=== PATIENT | female | born 1980 | race Caucasian/White ===

== ENCOUNTER 2021-10-02 12:37 | Inpatient (IN) ==
[2021-10-02 13:49] LABS: Hematocrit (blood only) 44.6 % (37-47); Hemoglobin 15.5 g/dL (12.0-16.0); Mean Corpuscular Hemoglobin 32.2 pg (25-34); Mean Corpuscular Hgb Conc 34.8 g/dL (32-36); Mean Corpuscular Volume 92.7 fL (80-100); Mean Platelet Volume 11.1 fL (7.4-10.4); Platelet Count 285 K/uL (130-400); RDW Coefficient of Variation 12.3 % (11.5-14.5); RDW Standard Deviation 41.6 fL (36.4-46.3); Red Blood Count 4.81 M/uL (4.2-5.4); White Blood Count 10.23 K/uL (4.8-10.8)
--- NOTE | 2021-10-02 13:53 | CT Scan Report ---
CT head/brain wo con CLINICAL HISTORY: Stroke Alert . Numbness in the lips COMPARISON STUDY: No previous studies for comparison. CT DOSE: 614.27 mGy.cm TECHNIQUE: Standard CT of the Brain was performed without IV contrast. A dose lowering technique was utilized adhering to the principles of ALARA. FINDINGS: Extraaxial space: There is no evidence for subdural hematoma. There are no extra-axial fluid collecti ons. Ventricles and cisterns: The ventricles are normal in size and configuration. There is no evidence fo r midline shift or mass effect. Parenchyma: There is no subarachnoid or intraparenchymal hemorrhage. There is no evidence for an acut e infarct or cerebral edema. There is homogeneous attenuation of the brain parenchyma. There are no g ross mass lesions. Osseous structures: There is no evidence for an acute fracture. The visualized paranasal sinuses are clear. The mastoid air cells are clear bilaterally. Soft tissues: There is no evidence for focal soft tissue swelling. IMPRESSION: 1. No acute intracerebral pathology. ACT 112: Negative or not required by law. Electronically signed by: Moisés Song M.D. 10/02/2021 1:52 PM
[2021-10-02 13:58] LABS: Partial Thromboplastin Time 27.7 Seconds (21.0-31.0); Prothrombin Time 10.9 Seconds (9.0-12.0)
[2021-10-02 14:22] LABS: Albumin Globulin Ratio 1.6 (0.9-2); Albumin Level 4.6 gm/dl (3.4-5.0); BUN Creatinine Ratio 15.1 (10-20); Bilirubin,Total 0.9 mg/dl (0.2-1.0); Calcium 9.8 mg/dl (8.5-10.1); Creatinine Clr Calc Pharmacy 84.4 ml/min; Est GFR (African American) 96.6 ml/min; Est GFR (Non-African American) 83.3 ml/min; Globulin 2.9 gm/dl (2.5-4.0); Potassium 3.9 mmol/L (3.5-5.1); Total Protein 7.5 gm/dl (6.0-8.3)
--- NOTE | 2021-10-02 14:33 | XRay Report ---
XR chest 2V PA/lateral HISTORY: Left arm numbness. Stroke symptoms. COMPARISON: None. FINDINGS: The lungs are clear. Cardiac silhouette is normal in size. No pleural effusions. No pneumot horax. IMPRESSION: No acute process. ACT 112: Negative or not required by law. Electronically signed by: Star Collazo M.D. 10/02/2021 2:32 PM
[2021-10-02] MEDS ORDERED: SODIUM CHLORIDE 0.9% 1000ML 1,000 ML IV ONE (16:02)
[2021-10-02] MEDS ORDERED: MAGNESIUM SULFATE / D5W 1 GM/100 ML BAG IV STA (16:02)
--- NOTE | 2021-10-02 16:14 | Emergency Department Note ---
History of Present Illness General Chief complaint: Neuro Symptoms/Deficit Stated complaint: LOSS OF FEELING IN HAND, NUMBNESS IN FACE Time Seen by Provider: 10/02/21 15:21 Source: patient History of Present Illness Provider complaint: Numbness to the left hand Onset (ago): hour(s) Location: upper extremity and left Radiation: non-radiation Pain Consistency: + constant Maximum Pain Intensity: 3 Quality: + other (Like she has Novocain injected to her hand.) Relieved By: + none Associated symptoms: + headaches; no chest pain, no cough, no fever/chills, no nausea/vomiting, no shortness of breath or no weakness This is a 40-year-old female who presents with left hand numbness starting at approximately 7 AM this morning when she woke up. She states that she feels lik e there is Novocain injected into her hand. She denies any weakness to the hand. She does state that she has had neck problems in the past but denies having any neck pain at this time. She does have a little pain to her left shoulder. She has no numbness to her left arm proximal to the wrist. She denies any difficulty with her speech, swallowing or walking. She does deny any acute vision changes other than saying spots in front of her eyes that look like rectangles. She gets these sometimes when she gets a headache. She did start having a headache yesterday which is on the right side behind her eye rating to the back of her head. It did go away but then is starting to come back right now. She has a history of similar headaches but denies any diagnosis of migraines. Her mother is diagnosed with migraine headaches. She did have COVID 2 weeks ago but has no symptoms currently. She denies any fever, cough, chest pain or shortness of breath. She has had no abdominal pain, vomiting diarrhea or urinary symptoms. She does have an implantable Mirena IUD. Home Medications Medication Instructions Recorded Confirmed Type levonorgestrel 20 mcg/24 hours (7 20 mcg INTRAUTERINE CONT 10/02/21 10/02/21 History yrs) 52 mg intrauterine device (Mirena) Allergies Allergy/AdvReac Type Severity Reaction Status Date / Time erythromycin base Allergy Nausea Verified 10/02/21 16:31 Past Med/Surg History Medical History (Updated 10/02/21 @ 19:34 by Gilbert Phan MD) Anxiety Depression Social History Preferred Language: Palestinian Feels Safe at Home: Yes Review of Systems See HPI for pertinent positives & negatives. and A total of 10 systems reviewed and were otherwise negative Physical Exam Vital Signs Vital Signs - 24 hr 10/02/21 12:55 10/02/21 16:00 10/02/21 16:15 Temperature 36.4 C L Temperature Source Temporal Artery Scan Pulse Rate 84 72 Pulse Rate [Apical] 71 Pulse Rhythm Regular Pulse Rhythm [Apical] Regular Pulse Strength Normal Respiratory Rate 20 17 20 Respiratory Effort / Characteristics Non-Labored Spontaneous Non-Labored Respiratory Depth Normal Normal Respiratory Pattern Regular Blood Pressure 163/97 H Blood Pressure [Right Arm] 127/88 Blood Pressure Mean 119 Blood Pressure Mean [Right Arm] 101 Blood Pressure Position Sitting Pulse Oximetry 98 98 95 Oxygen Delivery Method Room Air Room Air Room Air Sepsis Recent Fever Within 48 Hours No Sepsis New/Unexplained Change in Mental Status No Sepsis Action Taken by Nursing No Action Required Constitutional: Vital signs reviewed. Eyes: Pupils are equal round reactive to light. Conjunctiva are noninjected. ENT: Pharynx is clear without erythema or exudate. Mucous membranes are moist. Neck supple without meningeal signs. Negative Spurling sign. No midline tenderness to the cervical spine. Respiratory: Clear to auscultation bilaterally. Breath sounds are equal bilaterally. Cardiovascular: Regular rate and rhythm. No rubs or gallops. GI: Soft, nondistended and nontender. Bowel sounds are present. Musculoskeletal: No peripheral edema. No lower extremity tenderness. Integumentary: No cyanosis. or jaundice. Neurologic: The patient is awake and alert. Cranial nerves II-XII are intact. Motor is 5 out of 5 all extremities. Sensation is intact to light touch all extremities with dysesthesia to the left hand only. Normal speech. No pronator drift. No limb ataxia. Psychiatric: Normal affect. Not anxious appearing. Course Administered Medications Discontinued Medications Gadobutrol (Gadobutrol 65ml Vial) 7.8 ml IV ONCE ONE Stop: 10/02/21 18:12 Last Admin: 10/02/21 18:11 Dose: 7.8 ml Documented by: [id number] Magnesium Sulfate/Dextrose (Magnesium Sulfate / D5w) 1 gm in 100 mls @ 100 mls/hr IV NOW STA Stop: 10/02/21 17:01 Last Admin: 10/02/21 16:52 Dose: 100 mls/hr Documented by: [id number] Sodium Chloride (Nss 1000ml) 1,000 mls @ 999 mls/hr IV .Q1H1M ONE Stop: 10/02/21 17:02 Last Admin: 10/02/21 16:52 Dose: 999 mls/hr Documented by: [id number] Ioversol (Optiray 320 125ml) 119 ml IV ONCE ONE Stop: 10/02/21 18:38 Last Admin: 10/02/21 18:38 Dose: 119 ml Documented by: [id number] Medical Decision Making Differential Diagnosis Complex migraine, tension headache, paresthesias, TIA, CVA, cervical radiculopathy Medical Records Attestation: I reviewed the patient's medical records. I did perform a limited focused review of portions of the patient's old chart on the electronic medical record. The patient has had no recent pertinent visits to this hospital. Home Medications Current Medication List: was personally reviewed by me Laboratory Data Attestation: I reviewed the patient's lab results. Result diagrams: 10/02/21 13:35 10/02/21 13:35 Lab Results 10/02/21 10/02/21 10/02/21 Range/Units 13:35 13:35 13:35 WBC 10.23 (4.8-10.8) K/uL RBC 4.81 (4.2-5.4) M/uL Hgb 15.5 (12.0-16.0) g/dL Hct 44.6 (37-47) % MCV 92.7 (80-100) fL MCH 32.2 (25-34) pg MCHC 34.8 (32-36) g/dL RDW Std Deviation 41.6 (36.4-46.3) fL RDW Coeff of Cecilia 12.3 (11.5-14.5) % Plt Count 285 (130-400) K/uL MPV 11.1 H (7.4-10.4) fL PT 10.9 (9.0-12.0) Seconds INR 1.0 (0.9-1.1) APTT 27.7 (21.0-31.0) Seconds PTT Ratio 1.0 Sodium 137 (136-145) mmol/L Potassium 3.9 (3.5-5.1) mmol/L Chloride 106 (98-107) mmol/L Carbon Dioxide 26 (21-32) mmol/L Anion Gap 5 (3-11) BUN 13 (6-23) mg/dl Creatinine 0.86 (0.6-1.2) mg/dl Est Cr Clr Drug Dosing 84.4 ml/min Est GFR ( Amer) 96.6 ml/min Est GFR (Non-Af Amer) 83.3 ml/min BUN/Creatinine Ratio 15.1 (10-20) Glucose 96 (70-99(Fasting)) mg/dl POC Glucose (70-99) mg/dl Calcium 9.8 (8.5-10.1) mg/dl Magnesium 2.0 (1.7-2.4) mg/dl Total Bilirubin 0.9 (0.2-1.0) mg/dl AST 15 (13-39) U/L ALT 13 (7-52) U/L Alkaline Phosphatase 66 (34-104) U/L Total Protein 7.5 (6.0-8.3) gm/dl Albumin 4.6 (3.4-5.0) gm/dl Globulin 2.9 (2.5-4.0) gm/dl Albumin/Globulin Ratio 1.6 (0.9-2) / Range/Units 16:17 WBC (4.8-10.8) K/uL RBC (4.2-5.4) M/uL Hgb (12.0-16.0) g/dL Hct (37-47) % MCV (80-100) fL MCH (25-34) pg MCHC (32-36) g/dL RDW Std Deviation (36.4-46.3) fL RDW Coeff of Cecilia (11.5-14.5) % Plt Count (130-400) K/uL MPV (7.4-10.4) fL PT (9.0-12.0) Seconds INR (0.9-1.1) APTT (21.0-31.0) Seconds PTT Ratio Sodium (136-145) mmol/L Potassium (3.5-5.1) mmol/L Chloride (98-107) mmol/L Carbon Dioxide (21-32) mmol/L Anion Gap (3-11) BUN (6-23) mg/dl Creatinine (0.6-1.2) mg/dl Est Cr Clr Drug Dosing ml/min Est GFR ( Amer) ml/min Est GFR (Non-Af Amer) ml/min BUN/Creatinine Ratio (10-20) Glucose (70-99(Fasting)) mg/dl POC Glucose 96 (70-99) mg/dl Calcium (8.5-10.1) mg/dl Magnesium (1.7-2.4) mg/dl Total Bilirubin (0.2-1.0) mg/dl AST (13-39) U/L ALT (7-52) U/L Alkaline Phosphatase (34-104) U/L Total Protein (6.0-8.3) gm/dl Albumin (3.4-5.0) gm/dl Globulin (2.5-4.0) gm/dl Albumin/Globulin Ratio (0.9-2) Imaging Data Radiologist's Impression: Chest X-Ray 10/02/21 13:00 XR chest 2V PA/lateral HISTORY: Left arm numbness. Stroke symptoms. COMPARISON: None. FINDINGS: The lungs are clear. Cardiac silhouette is normal in size. No pleural effusions. No pneumothorax. IMPRESSION: No acute process. ACT 112: Negative or not required by law. Electronically signed by: Star Collazo M.D. 10/02/2021 2:[address] 10/02/21 13:00 CT head/brain wo con CLINICAL HISTORY: Stroke Alert . Numbness in the lips COMPARISON STUDY: No previous studies for comparison. CT DOSE: 614.27 mGy.cm TECHNIQUE: Standard CT of the Brain was performed without IV contrast. A dose lowering technique was utilized adhering to the principles of ALARA. FINDINGS: Extraaxial space: There is no evidence for subdural hematoma. There are no extra-axial fluid collections. Ventricles and cisterns: The ventricles are normal in size and configuration. There is no evidence for midline shift or mass effect. Parenchyma: There is no subarachnoid or intraparenchymal hemorrhage. There is no evidence for an acute infarct or cerebral edema. There is homogeneous attenuation of the brain parenchyma. There are no gross mass lesions. Osseous structures: There is no evidence for an acute fracture. The visualized paranasal sinuses are clear. The mastoid air cells are clear bilaterally. Soft tissues: There is no evidence for focal soft tissue swelling. IMPRESSION: 1. No acute intracerebral pathology. ACT 112: Negative or not required by law. Electronically signed by: Moisés Song M.D. 10/02/2021 1:52 PM Brain MRI 10/02/21 15:52 MR brain wo/w con CLINICAL HISTORY: stroke like symptoms TECHNIQUE: Multiplanar and multisequence MR images of the brain were obtained prior to and following administration of gadolinium contrast. Comparison: None available at the time of this dictation. FINDINGS: Restricted diffusion is seen in the posterior MCA territory. Associated edema is seen without significant mass effect or midline shift. The ventricular system is normal in appearance. There is no evidence of acute intraparenchymal hemorrhage. No extra axial fluid collections are seen. The corpus callosum, pituitary gland, and cerebellar tonsils appear grossly unremarkable. Flow voids of the major intracranial arterial vessels are identified. The imaged portions of the paranasal sinuses, mastoid air cells, and orbits are unremarkable. IMPRESSION: Acute infarct is in the right posterior MCA territory with associated edema. No hemorrhagic transformation is seen. ACT 112: Negative or not required by law. Electronically signed by: Nacho Gonzalez M.D. 10/02/2021 6:48 PM Head CTA 10/02/21 15:52 CT angio neck with con, CT angio head w con CLINICAL HISTORY: stroke like symptoms TECHNIQUE: CT angiography of the head and neck was performed following intravenous administration of iodinated contrast. Coronal and sagittal MIPS were obtained from the axial data set and were submitted for review. Automated dose lowering techniques and/or adjustment according to patient size were utilized for this examination. All measurements were calculated based on NASCET criteria. Comparison: None available at the time of this dictation. FINDINGS: Small thyroid nodules are seen which do not require follow-up by ACR criteria. CTA Neck: A 3 vessel aortic arch is shown. There is no significant atherosclerotic plaque in the aortic arch or the origins of the innominate, left common carotid, and left subclavian arteries. The common carotid, external carotid, cervical segments of the internal carotid arteries, and the cervical segments of the vertebral arteries are patent without hemodynamically significant stenosis. The right vertebral artery is dominant. CTA Head: The anterior and posterior cerebral circulations are patent. No hemodynamically significant stenosis, aneurysm, dissection, or arteriovenous malformation is shown. Incidentally noted, the right anterior communicating artery is diminutive. IMPRESSION: 1. No occlusion, hemodynamically significant stenosis, aneurysm, dissection, or arteriovenous malformation in the major intracranial arteries. 2. No occlusion, hemodynamically significant stenosis, or dissection in the major cervical arteries. 3. Please see MRI brain performed same day for detailed findings of right MCA territory infarct. Assessment of stenosis of the internal carotid arteries is based on NASCET criteria. ACT 112: Negative or not required by law. Electronically signed by: Nacho Gonzalez M.D. 10/02/2021 7:27 PM Neck CTA 10/02/21 15:52 CT angio neck with con, CT angio head w con CLINICAL HISTORY: stroke like symptoms TECHNIQUE: CT angiography of the head and neck was performed following intravenous administration of iodinated contrast. Coronal and sagittal MIPS were obtained from the axial data set and were submitted for review. Automated dose lowering techniques and/or adjustment according to patient size were utilized f or this examination. All measurements were calculated based on NASCET criteria. Comparison: None available at the time of this dictation. FINDINGS: Small thyroid nodules are seen which do not require follow-up by ACR criteria. CTA Neck: A 3 vessel aortic arch is shown. There is no significant atherosclerotic plaque in the aortic arch or the origins of the innominate, left common carotid, and left subclavian arteries. The common carotid, external carotid, cervical segments of the internal carotid arteries, and the cervical segments of the vertebral arteries are patent without hemodynamically significant stenosis. The right vertebral artery is dominant. CTA Head: The anterior and posterior cerebral circulations are patent. No hemodynamically significant stenosis, aneurysm, dissection, or arteriovenous malformation is shown. Incidentally noted, the right anterior communicating artery is diminutive. IMPRESSION: 1. No occlusion, hemodynamically significant stenosis, aneurysm, dissection, or arteriovenous malformation in the major intracranial arteries. 2. No occlusion, hemodynamically significant stenosis, or dissection in the major cervical arteries. 3. Please see MRI brain performed same day for detailed findings of right MCA territory infarct. Assessment of stenosis of the internal carotid arteries is based on NASCET criteria. ACT 112: Negative or not required by law. Electronically signed by: Nacho Gonzalez M.D. 10/02/2021 7:27 PM Cervical Spine MRI 10/02/21 16:01 MR OF THE CERVICAL SPINE WITHOUT IV CONTRAST CLINICAL HISTORY: left hand numb eval for spinal cord injury TECHNIQUE: MRI of the cervical spine is performed utilizing various T1 and T2 sequences in the axial and sagittal planes. IV contrast was not administered for this examination. Comparison: None available at the time of this dictation. FINDINGS: Exam is limited by patient motion. Cervical spine: Vertebral body height and alignment are maintained throughout the cervical spine. The atlantodental articulation appears maintained. No destructive bony lesion is seen. Intervertebral discs: Disks are normal in height and signal. Spinal cord: The cervical spinal cord is normal in morphology and signal intensity. C2-C3: Unremarkable. C3-C4: Small posterior disc bulge is seen without significant stenosis. C4-C5: Mild bilateral neural foraminal stenosis is seen. C5-C6: Small posterior disc bulge is seen without significant stenosis. C6-C7: Unremarkable. C7-T1: Unremarkable. Soft tissues: The paraspinous and prevertebral soft tissues are normal in appearance. Brain parenchyma: Partially imaged brain parenchyma at the skull base is within normal limits. IMPRESSION: Multilevel degenerative changes without significant stenosis. ACT 112: Negative or not required by law. Electronically signed by: Nacho Gonzalez M.D. 10/02/2021 6:21 PM ECG Data Attestation: I personally reviewed and interpreted this ECG as follows: Indication: + other (Neuro symptoms) Rate (beats per minute): 81 Rhythm: + normal sinus ECG [place]: + Normal ECG ST segments: + T-wave inversions; no ST elevation ECG Findings: no PVCs Comparison ECG Date: no prior available MDM Narrative I did evaluate the patient as noted above. She is presenting with right hand numbness since this morning. She also has had a headache with scotomas. She has no prior history of migraines but does have a family history. On exam she does have decreased sensation throughout the left hand. IV access was established. She was given IV normal saline and magnesium for possible migraine. I did place an order for continuous cardiac monitoring. The monitor showed normal sinus rhythm at a rate of 70 bpm. I did order and personally review the patient's 12-lead EKG as described above. She has no acute ischemia. I did order and personally reviewed the images of the patient's chest x-ray as d escribed above. There is no evidence of pneumonia. I did order and review the patient's blood work as noted in the electronic medical record. CBC does not demonstrate leukocytosis or anemia. Coags are unremarkable. Electrolytes and LFTs are normal. I did order a CT of the head. I did review the images myself as well as the radiology report as described above. There is no evidence of acute intracranial abnormality. I did order an MRI of the brain as well as the cervical spine. I did review the images myself as well as the radiology report as described above. She has degenerative changes of her neck and she has unfortunately a acute infarct in the right MCA territory. She is not a TPA candidate. She started having symptoms upon waking at 7 AM. I did discuss the test results with the patient. She has no change in her symptoms. I did order a hypercoagulable evaluation which is pending. She does state that her father had a clot in his leg at middle age and she does not know the circumstances of it. I did treat her with aspirin 325 mg p.o. I did order CT angiograms of the head and neck. There is no evidence of occlusion, hemodynamically significant stenosis, aneurysm, dissection or AVM. I did discuss the case with the hospitalist and correctional case manager. Resident Physician Supervision Note: I did perform an independent evaluation and examination of this patient as desc ribed. I also saw this patient in conjunction with the resident, Dr. Abdalla, and guided management for the patient. Impression & Plan Acute cerebrovascular accident (CVA) Discharge Plan Visit Data Chief Complaint: Neuro Symptoms/Deficit Stated Complaint: LOSS OF FEELING IN HAND, NUMBNESS IN FACE ED Provider: Gilbert Phan ED Midlevel Provider: Sylvester Abdalla Discharge Problem: Acute cerebrovascular accident (CVA) Patient Disposition: Being Evaluated by Hospitalist Forms Stand Alone Forms: My [facility] [employer] Prescriptions Prescriptions: No Action Mirena 20 mcg/24 hours (7 yrs) 52 mg Intrauterine Device 20 mcg INTRAUTERINE CONT RF: 0 Referrals Referrals: Allyson Lux DO [Primary Care Provider] - Resident Activity Tracking Resident Involvement: Resident Care Provided Care Provided: Adult ED Addendum October 02, 2021 16:57 Resident attestation: I participated in the care of this patient. Please see attending Dr. Phan's documentation.
--- NOTE | 2021-10-02 16:56 | Electrocardiogram Report ---
Test Reason : Blood Pressure : / mmHG Vent. Rate : 081 BPM Atrial Rate : 081 BPM P-R Int : 122 ms QRS Dur : 082 ms QT Int : 368 ms P-R-T Axes : 008 041 014 degrees QTc Int : 427 ms Normal sinus rhythm Nonspecific T wave abnormality Abnormal ECG No previous ECGs available Confirmed by Henri Funk ([id number]) on 10/02/2021 4:56:20 PM Referred By: Confirmed By:Candido Funk
[2021-10-02] MEDS ORDERED: GADOBUTROL 65ML VIAL IV ONE (18:11)
--- NOTE | 2021-10-02 18:23 | Magnetic Resonance Report ---
MR OF THE CERVICAL SPINE WITHOUT IV CONTRAST CLINICAL HISTORY: left hand numb eval for spinal cord injury TECHNIQUE: MRI of the cervical spine is performed utilizing various T1 and T2 sequences in the axial and sagittal planes. IV contrast was not administered for this examination. Comparison: None available at the time of this dictation. FINDINGS: Exam is limited by patient motion. Cervical spine: Vertebral body height and alignment are maintained throughout the cervical spine. The atlantodental articulation appears maintained. No destructive bony lesion is seen. Intervertebral discs: Disks are normal in height and signal. Spinal cord: The cervical spinal cord is normal in morphology and signal intensity. C2-C3: Unremarkable. C3-C4: Small posterior disc bulge is seen without significant stenosis. C4-C5: Mild bilateral neural foraminal stenosis is seen. C5-C6: Small posterior disc bulge is seen without significant stenosis. C6-C7: Unremarkable. C7-T1: Unremarkable. Soft tissues: The paraspinous and prevertebral soft tissues are normal in appearance. Brain parenchyma: Partially imaged brain parenchyma at the skull base is within normal limits. IMPRESSION: Multilevel degenerative changes without significant stenosis. ACT 112: Negative or not required by law. Electronically signed by: Nacho Gonzalez M.D. 10/02/2021 6:21 PM
[2021-10-02] MEDS ORDERED: OPTIRAY 320 125ml IV ONE (18:37)
--- NOTE | 2021-10-02 18:50 | Magnetic Resonance Report ---
MR brain wo/w con CLINICAL HISTORY: stroke like symptoms TECHNIQUE: Multiplanar and multisequence MR images of the brain were obtained prior to and following administration of gadolinium contrast. Comparison: None available at the time of this dictation. FINDINGS: Restricted diffusion is seen in the posterior MCA territory. Associated edema is seen without signifi cant mass effect or midline shift. The ventricular system is normal in appearance. There is no evide nce of acute intraparenchymal hemorrhage. No extra axial fluid collections are seen. The corpus callo sum, pituitary gland, and cerebellar tonsils appear grossly unremarkable. Flow voids of the major intracranial arterial vessels are identified. The imaged portions of the para nasal sinuses, mastoid air cells, and orbits are unremarkable. IMPRESSION: Acute infarct is in the right posterior MCA territory with associated edema. No hemorrhagic transform ation is seen. ACT 112: Negative or not required by law. Electronically signed by: Nacho Gonzalez M.D. 10/02/2021 6:48 PM
[2021-10-02] MEDS ORDERED: ASPIRIN 81 MG CHEW PO STA (19:08)
--- NOTE | 2021-10-02 19:29 | CT Scan Report ---
CT angio neck with con, CT angio head w con CLINICAL HISTORY: stroke like symptoms TECHNIQUE: CT angiography of the head and neck was performed following intravenous administration of iodinated contrast. Coronal and sagittal MIPS were obtained from the axial data set and were submitt ed for review. Automated dose lowering techniques and/or adjustment according to patient size were u tilized for this examination. All measurements were calculated based on NASCET criteria. Comparison: None available at the time of this dictation. FINDINGS: Small thyroid nodules are seen which do not require follow-up by ACR criteria. CTA Neck: A 3 vessel aortic arch is shown. There is no significant atherosclerotic plaque in the aor tic arch or the origins of the innominate, left common carotid, and left subclavian arteries. The c ommon carotid, external carotid, cervical segments of the internal carotid arteries, and the cervical segments of the vertebral arteries are patent without hemodynamically significant stenosis. The righ t vertebral artery is dominant. CTA Head: The anterior and posterior cerebral circulations are patent. No hemodynamically significan t stenosis, aneurysm, dissection, or arteriovenous malformation is shown. Incidentally noted, the rig ht anterior communicating artery is diminutive. IMPRESSION: 1. No occlusion, hemodynamically significant stenosis, aneurysm, dissection, or arteriovenous malfor mation in the major intracranial arteries. 2. No occlusion, hemodynamically significant stenosis, or dissection in the major cervical arteries. 3. Please see MRI brain performed same day for detailed findings of right MCA territory infarct. Assessment of stenosis of the internal carotid arteries is based on NASCET criteria. ACT 112: Negative or not required by law. Electronically signed by: Nacho Gonzalez M.D. 10/02/2021 7:27 PM
[2021-10-02] MEDS ORDERED: CLOPIDOGREL BISULFATE 75 MG TAB PO ONE (21:02)
--- NOTE | 2021-10-02 21:43 | History & Physical Report ---
Date of Service October 02, 2021 Assessment & Plan (1) Acute cerebrovascular accident (CVA): Plan: Admit to telemetry Patient presenting from home with reports of left hand numbness that was present when she woke up this morning, also some intermittent perioral and tongue numbness throughout the day Brain MRI shows acute right MCA infarct Other imaging studies as noted below Case discussed with Dr. Lizarraga-patient received full dose aspirin in ED, continue aspirin 81 mg daily starting tomorrow, start Plavix 75 mg tonight Follow-up CT scan in the morning Echo with bubble study Hypercoagulable work-up obtained in ED (risk factors - smoker, + family hx DVT; also recent COVID infection - ? clinical significace) (2) Anxiety: Plan: Continue citalopram (3) DVT prophylaxis: Plan: SCDs History of Present Illness Chief Complaint: Left hand numbness Primary Care Provider: Allyson Lux DO 40-year-old female PMH anxiety, other problems to below who presents the ED for evaluation of left hand numbness. Patient states that whenever she woke up this morning, her left hand was numb. Throughout the day, she also had some intermittent perioral and tongue numbness. She also woke up with a headache this morning that she describes as her " usual headache". She had some intermittent floaters over the past few days that she associates with her chronic ocular migraines. Patient denies difficulty speaking and understanding. No blurred or double vision. Denies facial droop or drooling. Reports difficulty using her left hand due to numbness however denies weakness. No other unilateral weakness, numbness, tingling. Denies lightheadedness, dizziness, diaphoresis, syncopal events. No seizure-like activity reported. Noted the patient has a positive for COVID-19 on 09/18. Illness seem to be self- limited. No chest pain or shortness of breath. Denies abdominal pain, nausea, vomiting, diarrhea. No urinary symptoms. In the ED, brain MRI showed Acute infarct is in the right posterior MCA territory. Patient is hemodynamically stable, labs unremarkable. Patient was given full dose aspirin. Allergies Allergy/AdvReac Type Severity Reaction Status Date / Time erythromycin base Allergy Nausea Verified 10/02/21 16:31 Home Medications Medication Instructions Recorded Confirmed Type albuterol sulfate 90 mcg/actuation 2 puff INHALATION Q4H PRN 10/02/21 10/02/21 History aerosol inhaler citalopram 10 mg tablet 10 mg PO DAILY 10/02/21 10/02/21 History citalopram 20 mg tablet 20 mg PO DAILY 10/02/21 10/02/21 History clonazepam 0.5 mg tablet 0.5 mg PO TID PRN 10/02/21 10/02/21 History levonorgestrel 20 mcg/24 hours (7 20 mcg INTRAUTERINE CONT 10/02/21 10/02/21 History yrs) 52 mg intrauterine device (Mirena) Past Med/Surg History Medical History Anxiety Depression Surgical History (Updated 10/02/21 @ 21:36 by SRINIVAS Tinoco) No significant past surgical history Family History Mother Sudden Father Deep vein thrombosis Diabetes Social History Smoking Status: Current every day smoker Cigarettes Per Day: 10; Hx Alcohol Use: Yes Alcohol type: beer, wine and hard liquor Alcohol Intake Frequency Comment: " On the weekends" Hx Substance Use: No Preferred Language: Estonian Communication Ability: Effective 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 Beliefs That Will Affect Care: None Current Living Situation: Alone Other Information That Helps Us Care for You: No Feels Safe at Home: Yes Safety Concerns: Feels Safe At This Time Assistive Devices: None Review of Systems Review of Systems: ROS per HPI, all other systems reviewed and negative Physical Exam Constitutional: WD/WN, vitals as above Eyes: PERRL, conjunctivae normal, anicteric sclerae ENMT: external ear and nose normal, oropharynx normal Respiratory: normal respiratory effort, lungs clear to auscultation Cardiovascular: Rate/Rhythm: regular rate and regular rhythm Vessels: normal peripheral pulses Extremities: no edema Gastrointestinal (Abdomen): normal bowel sounds, soft, nontender, no hepatosplenomegaly Musculoskeletal: no cyanosis or clubbing, extremities motor strength 5/5 Skin: no rashes, warm and dry Neurologic: PERRL, EOMI, accommodation nl, no face palsy, no dysarthria moves all extremities and awake; no focal motor deficits Motor/Sensory: no pronator drift Coordination: normal [id number] test Decrease sensation to left hand Psychiatric: A+Ox3, euthymic affect Results & Data Results & Data ([facility]) Vital Signs (Past 12 Hours) Vital Signs Temp Pulse Pulse Resp BP BP Pulse Ox 10/02/21 19:00 81 12 174/122 H 98 10/02/21 16:15 72 20 95 10/02/21 16:00 71 17 127/88 98 10/02/21 12:55 36.4 C L 84 20 163/97 H 98 Laboratory Results Short CBC 10/02/21 Range/Units 13:35 WBC 10.23 (4.8-10.8) K/uL Hgb 15.5 (12.0-16.0) g/dL Hct 44.6 (37-47) % Plt Count 285 (130-400) K/uL BMP 10/02/21 13:35 Sodium 137 Potassium 3.9 Chloride 106 Carbon Dioxide 26 BUN 13 Creatinine 0.86 Glucose 96 Calcium 9.8 Liver Function 10/02/21 Range/Units 13:35 Total Bilirubin 0.9 (0.2-1.0) mg/dl AST 15 (13-39) U/L ALT 13 (7-52) U/L Alkaline Phosphatase 66 (34-104) U/L Albumin 4.6 (3.4-5.0) gm/dl Diagnostic Findings Chest X-Ray 10/02/21 13:00 XR chest 2V PA/lateral HISTORY: Left arm numbness. Stroke symptoms. COMPARISON: None. FINDINGS: The lungs are clear. Cardiac silhouette is normal in size. No pleural effusions. No pneumothorax. IMPRESSION: No acute process. ACT 112: Negative or not required by law. Electronically signed by: Star Collazo M.D. 10/02/2021 2:[address] 10/02/21 13:00 CT head/brain wo con CLINICAL HISTORY: Stroke Alert . Numbness in the lips COMPARISON STUDY: No previous studies for comparison. CT DOSE: 614.27 mGy.cm TECHNIQUE: Standard CT of the Brain was performed without IV contrast. A dose lowering technique was utilized adhering to the principles of ALARA. FINDINGS: Extraaxial space: There is no evidence for subdural hematoma. There are no ex tra-axial fluid collections. Ventricles and cisterns: The ventricles are normal in size and configuration. There is no evidence for midline shift or mass effect. Parenchyma: There is no subarachnoid or intraparenchymal hemorrhage. There is no evidence for an acute infarct or cerebral edema. There is homogeneous attenuation of the brain parenchyma. There are no gross mass lesions. Osseous structures: There is no evidence for an acute fracture. The visualized paranasal sinuses are clear. The mastoid air cells are clear bilaterally. Soft tissues: There is no evidence for focal soft tissue swelling. IMPRESSION: 1. No acute intracerebral pathology. ACT 112: Negative or not required by law. Electronically signed by: Moisés Song M.D. 10/02/2021 1:52 PM Brain MRI 10/02/21 15:52 MR brain wo/w con CLINICAL HISTORY: stroke like symptoms TECHNIQUE: Multiplanar and multisequence MR images of the brain were obtained prior to and following administration of gadolinium contrast. Comparison: None available at the time of this dictation. FINDINGS: Restricted diffusion is seen in the posterior MCA territory. Associated edema is seen without significant mass effect or midline shift. The ventricular system is normal in appearance. There is no evidence of acute intraparenchymal hemorrhage. No extra axial fluid collections are seen. The corpus callosum, pituitary gland, and cerebellar tonsils appear grossly unremarkable. Flow voids of the major intracranial arterial vessels are identified. The imaged portions of the paranasal sinuses, mastoid air cells, and orbits are unremarkable. IMPRESSION: Acute infarct is in the right posterior MCA territory with associated edema. No hemorrhagic transformation is seen. ACT 112: Negative or not required by law. Electronically signed by: Nacho Gonzalez M.D. 10/02/2021 6:48 PM Head CTA 10/02/21 15:52 CT angio neck with con, CT angio head w con CLINICAL HISTORY: stroke like symptoms TECHNIQUE: CT angiography of the head and neck was performed following intravenous administration of iodinated contrast. Coronal and sagittal MIPS were obtained from the axial data set and were submitted for review. Automated dose lowering techniques and/or adjustment according to patient size were utilized for this examination. All measurements were calculated based on NASCET criteria. Comparison: None available at the time of this dictation. FINDINGS: Small thyroid nodules are seen which do not require follow-up by ACR criteria. CTA Neck: A 3 vessel aortic arch is shown. There is no significant atherosclerotic plaque in the aortic arch or the origins of the innominate, left common carotid, and left subclavian arteries. The common carotid, external carotid, cervical segments of the internal carotid arteries, and the cervical segments of the vertebral arteries are patent without hemodynamically significant stenosis. The right vertebral artery is dominant. CTA Head: The anterior and posterior cerebral circulations are patent. No hemodynamically significant stenosis, aneurysm, dissection, or arteriovenous malformation is shown. Incidentally noted, the right anterior communicating artery is diminutive. IMPRESSION: 1. No occlusion, hemodynamically significant stenosis, aneurysm, dissection, or arteriovenous malformation in the major intracranial arteries. 2. No occlusion, hemodynamically significant stenosis, or dissection in the major cervical arteries. 3. Please see MRI brain performed same day for detailed findings of right MCA territory infarct. Assessment of stenosis of the internal carotid arteries is based on NASCET criteria. ACT 112: Negative or not required by law. Electronically signed by: Nacho Gonzalez M.D. 10/02/2021 7:27 PM Neck CTA 10/02/21 15:52 CT angio neck with con, CT angio head w con CLINICAL HISTORY: stroke like symptoms TECHNIQUE: CT angiography of the head and neck was performed following intravenous administration of iodinated contrast. Coronal and sagittal MIPS were obtained from the axial data set and were submitted for review. Automated dose lowering techniques and/or adjustment according to patient size were utilized for this examination. All measurements were calculated based on NASCET criteria. Comparison: None available at the time of this dictation. FINDINGS: Small thyroid nodules are seen which do not require follow-up by ACR criteria. CTA Neck: A 3 vessel aortic arch is shown. There is no significant atherosclerotic plaque in the aortic arch or the origins of the innominate, left common carotid, and left subclavian arteries. The common carotid, external carotid, cervical segments of the internal carotid arteries, and the cervical segments of the vertebral arteries are patent without hemodynamically significant stenosis. The right vertebral artery is dominant. CTA Head: The anterior and posterior cerebral circulations are patent. No hemodynamically significant stenosis, aneurysm, dissection, or arteriovenous malformation is shown. Incidentally noted, the right anterior communicating artery is diminutive. IMPRESSION: 1. No occlusion, hemodynamically significant stenosis, aneurysm, dissection, or arteriovenous malformation in the major intracranial arteries. 2. No occlusion, hemodynamically significant stenosis, or dissection in the major cervical arteries. 3. Please see MRI brain performed same day for detailed findings of right MCA territory infarct. Assessment of stenosis of the internal carotid arteries is based on NASCET criteria. ACT 112: Negative or not required by law. Electronically signed by: Nacho Gonzalez M.D. 10/02/2021 7:27 PM Cervical Spine MRI 10/02/21 16:01 MR OF THE CERVICAL SPINE WITHOUT IV CONTRAST CLINICAL HISTORY: left hand numb eval for spinal cord injury TECHNIQUE: MRI of the cervical spine is performed utilizing various T1 and T2 sequences in the axial and sagittal planes. IV contrast was not administered for this examination. Comparison: None available at the time of this dictation. FINDINGS: Exam is limited by patient motion. Cervical spine: Vertebral body height and alignment are maintained throughout the cervical spine. The atlantodental articulation appears maintained. No destructive bony lesion is seen. Intervertebral discs: Disks are normal in height and signal. Spinal cord: The cervical spinal cord is normal in morphology and signal intensity. C2-C3: Unremarkable. C3-C4: Small posterior disc bulge is seen without significant stenosis. C4-C5: Mild bilateral neural foraminal stenosis is seen. C5-C6: Small posterior disc bulge is seen without significant stenosis. C6-C7: Unremarkable. C7-T1: Unremarkable. Soft tissues: The paraspinous and prevertebral soft tissues are normal in appearance. Brain parenchyma: Partially imaged brain parenchyma at the skull base is within normal limits. IMPRESSION: Multilevel degenerative changes without significant stenosis. ACT 112: Negative or not required by law. Electronically signed by: Nacho Gonzalez M.D. 10/02/2021 6:21 PM Code Status & VTE Plan VTE Prophylaxis Plan VTE Prophylaxis will be ordered: Yes Supervising Physician Co-Signing Physician Notes Care coordinated with Celina Multani CRNP. Agree with above note. Patient seen and examined. Please refer to her notes for full details. Vital signs reviewed. Physical exam: General exam: Alert and oriented. Not in acute distress. CVS: S1 and S2 heard, regular rate and rhythm, no murmurs. RS: Clear to auscultation, no wheezing or crackles. ABD: Soft, bowel sounds present, nontender, no distention. 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 Labs: Reviewed. Assessment and plan: 40F woke up with left hand numbness as was not getting better came to ER. Imaging studies shows right posterior MCA territorycute infarct.No oher symptoms. speech clear. No difficulty swallowing. No chest pain or sob. Had covid 09/18-. Not vaccinated. Smokes. Father had DVT in his 50's. Has IUD. a/p Acute stroke notified neurology follow echo with bubble study started on aspirin and plavix follow hypercoaguable workup await neuro inputs close monitor [place] abuse needs counselling Other diagnosis and plan of care as per SRINIVAS Tinoco.. Josh terrell MD.
[2021-10-02] MEDS ORDERED: PHARMACIST DISCHARGE MED REC CONSULT PRN (22:15)
[2021-10-02] MEDS: ACETAMINOPHEN 325 MG TAB PO PRN (22:27)
[2021-10-02 22:29] VITALS: TEMP 98.1
[2021-10-03 04:58] LABS: Basophils # (auto) 0.04 K/uL (0-0.2); Basophils % (auto) 0.4 %; Eosinophils # (auto) 0.09 K/uL (0-0.5); Hematocrit (blood only) 40.5 % (37-47); Hemoglobin 14.2 g/dL (12.0-16.0); Immature Granulocytes # (auto) 0.02 K/uL (0.00-0.02); Immature Granulocytes % (auto) 0.2 %; Lymphocytes # (auto) 3.38 K/uL (1.2-3.4); Lymphocytes % (auto) 37.8 %; Mean Corpuscular Hemoglobin 32.5 pg (25-34); Mean Corpuscular Hgb Conc 35.1 g/dL (32-36); Mean Corpuscular Volume 92.7 fL (80-100); Mean Platelet Volume 11.2 fL (7.4-10.4); Monocytes # (auto) 0.73 K/uL (0.11-0.59); Monocytes % (auto) 8.2 %; Neutrophils # (auto) 4.67 K/uL (1.4-6.5); Neutrophils % (auto) 52.4 %; Platelet Count 260 K/uL (130-400); RDW Coefficient of Variation 12.4 % (11.5-14.5); Red Blood Count 4.37 M/uL (4.2-5.4); White Blood Count 8.93 K/uL (4.8-10.8)
[2021-10-03 05:21] LABS: BUN Creatinine Ratio 13.7 (10-20); Calcium 8.7 mg/dl (8.5-10.1); Chol HDL Ratio 5.1 (0-5); Creatinine Clr Calc Pharmacy 99.6 ml/min; Est GFR (African American) 117.7 ml/min; Est GFR (Non-African American) 101.6 ml/min; Potassium 3.5 mmol/L (3.5-5.1)
[2021-10-03 07:51] LABS: Estimated Average Glucose 97 mg/dl
--- NOTE | 2021-10-03 08:28 | CT Scan Report ---
CT head/brain wo con CLINICAL HISTORY: f/u CVA . Patient reports no feeling in the left arm. COMPARISON STUDY: MR of the brain from 10/02/2021 CT DOSE: 537.48 mGy.cm TECHNIQUE: Standard CT of the Brain was performed without IV contrast. A dose lowering technique was utilized adhering to the principles of ALARA. FINDINGS: Extraaxial space: There is no evidence for subdural hematoma. There are no extra-axial fluid collecti ons. Ventricles and cisterns: The ventricles are normal in size and configuration. There is no evidence fo r midline shift or mass effect. Parenchyma: There is no subarachnoid or intraparenchymal hemorrhage. Compared to the MRI of the brain , there is mild decreased attenuation seen involving the distribution of the right middle cerebral ar maecy posteriorly. No additional infarcts or evidence for cerebral edema is seen. There is homogeneous attenuation of the remaining brain parenchyma. There are no gross mass lesions. Osseous structures: There is no evidence for an acute fracture. The visualized paranasal sinuses are clear. The mastoid air cells are clear bilaterally. Soft tissues: There is no evidence for focal soft tissue swelling. IMPRESSION: 1. Mild decreased attenuation within the distribution of the right middle cerebral cerebral artery po steriorly corresponding to the site of infarct seen on MRI. 2. No evidence for interval hemorrhage or significant cerebral edema. ACT 112: Negative or not required by law. Electronically signed by: Moisés Song M.D. 10/03/2021 8:26 AM
[2021-10-03] MEDS ORDERED: CITALOPRAM 20 MG TAB PO SCH ×2 (09:00)
[2021-10-03] MEDS ORDERED: CLOPIDOGREL BISULFATE 75 MG TAB PO SCH (09:00)
[2021-10-03] MEDS: ACETAMINOPHEN 325 MG TAB PO PRN (09:50)
[2021-10-03 11:36] VITALS: BP 109/67; PULSE 73; O2SAT 99
--- NOTE | 2021-10-03 12:42 | Neurology Consultation ---
Date of Consultation October 03, 2021 Assessment & Plan (1) Acute cerebrovascular accident (CVA): 1. MRI - stroke R MCA 2. CTA head/neck-no occlusion 3. TTE- ordered 4. hypercoag work up ordered 5. start aspirin 81 mg and plavix 75 mg daily x 21 days then aspirin for life 6. PT/OT speech for discharge needs 7. optimize HTN HLD LDL <70 8. ZIO as outpatient follow up with neurology in 4-6 weeks after discharge (2) Anxiety: Supervising Physician Co-Signing Physician Notes I have seen and discussed above patient with Dr Soni Cook, neurology. pt seen and examined. pt has covid three weeks ago with genl pain, fever lasting 1 day. awakened yesterday with numbness l hand above wrist and later periorally. mild r hemicranial headache later in day. no change in vision, speech, facial droop weakness. has hx of acephalgic cassius and common migraine as welll as long- standing ice pick headaches. Was otherwise well. smokes, hx of 1 first trimester miscarriage, no hx dvt, cancer, rf, prior neurologic deficit. NO family hx of dvt. mri shows mult small diffusion wt signal abnl in r mca, cta head and neck nml. Venous component not commented but there appears to be no venous sinus thrombosis. echo, no clot of pfo. hypercoag state awan pending. LDL83. exam is entirely nml.no r/l confusion, no bruits, field cut,no visual extinction no facial asyym or dysarthria. full strength, no drift, no sens loss to lt or temp. symm reflexes ;eft toe query up. gait nml. imp patchy r mca infarct with no vascular stenosis, obvious embolic source or currently known hypercoag state (other than covid. P DAPT x 21 d then asa. Statin tx with goal ldl 70 or less. smoking cessation. FU coags. Zio as outpt. pt needs to see us in fu. MD Ginger History of Present Illness Reason for Consultation: CVA Requesting Physician: Negrita Andrew MD Attending Physician: Negrita Andrew MD History of Present Illness Hafsa is a 40 year old female PMH anxiety who presents to [facility] ED 10/02/21 for evaluation of left hand numbness. She woke up in the morning, her left hand was numb and a headache. Throughout the day, she also had some intermittent perioral and tongue numbness. She had some intermittent floaters over the past few days that she associates with her chronic ocular migraines.She was having difficulty using her left hand due to numbness however denies weakness.She was positive for COVID-19 on 09/18 which was self-limited. brain MRI showed Acute infarct is in the right posterior MCA territory. she was given a full dose aspirin in the ED. She still has the numbness in her hand and forearm and feels like she cant use it to hold anything. there has been some improvement in sensation. denies CP, SOB, abdominal pain, one sided weakness, N, V, vision changes Allergies Allergy/AdvReac Type Severity Reaction Status Date / Time erythromycin base Allergy Nausea Verified 10/02/21 16:31 Home Medications Medication Instructions Recorded Confirmed Type albuterol sulfate 90 mcg/actuation 2 puff INHALATION Q4H PRN 10/02/21 10/02/21 History aerosol inhaler citalopram 10 mg tablet 10 mg PO DAILY 10/02/21 10/02/21 History citalopram 20 mg tablet 20 mg PO DAILY 10/02/21 10/02/21 History clonazepam 0.5 mg tablet 0.5 mg PO TID PRN 10/02/21 10/02/21 History levonorgestrel 20 mcg/24 hours (7 20 mcg INTRAUTERINE CONT 10/02/21 10/02/21 History yrs) 52 mg intrauterine device (Mirena) aspirin 81 mg tablet,delayed 81 mg PO DAILY #30 tab 10/03/21 Rx release atorvastatin 40 mg tablet 40 mg PO HS #30 tab 10/03/21 Rx clopidogrel 75 mg tablet 75 mg PO QAM 20 Days #20 tab 10/03/21 Rx Patient History Medical History Anxiety Depression Surgical History (Updated 10/02/21 @ 21:36 by SRINIVAS Tinoco) No significant past surgical history Family History Mother Sudden Father Deep vein thrombosis Diabetes Social History Smoking Status: Current every day smoker Cigarettes Per Day: 10; Hx Alcohol Use: Yes Alcohol type: beer, wine and hard liquor Alcohol Intake Frequency Comment: " On the weekends" Hx Substance Use: No Preferred Language: Ukrainian Communication Ability: Effective Squeegeer And Former Required: No Beliefs That Will Affect Care: None Current Living Situation: Alone Other Information That Helps Us Care for You: No Feels Safe at Home: Yes Safety Concerns: Feels Safe At This Time Assistive Devices: None Review of Systems Review of Systems: All systems reviewed & are unremarkable except as noted in HPI & below Physical Exam Physical Exam: Physical Exam: Constitutional: appearance over nourished, healthy and normal Ears, Nose, Mouth and Throat: mucous membranes moist, no injection and skin normal, eyes normal Cardiovascular: normal S-1 and S-2 and regular rate and rhythm Respiratory: clear to auscultation (CTA) and no rales, rhonchi or wheeze Musculoskeletal: no peripheral edema and good distal pulses Skin: no stigmata of neurocutaneous disease noted and normal and intact Eyes: extraocular muscles intact (EOMI) and pupils equal, round and reactive to light (PERRL), gross peripheral vision intact NEUROLOGIC EXAMINATION: Mental status: Alert and interactive Oriented to full date and location Oriented to person Speech fluent with no evidence of aphasia Cranial Nerves smile eye brow raise symmetric Reflexes: Deep tendon reflexes were symmetrical and graded 2/5. down going toes Sensory: light and cool touch decreased left UE to midforearm Coordination: finger to nose dysmetric left Gait/Stance: Posture normal. sitting on side of bed moving around in room Motor: Negative for pronator drift of out stretched arms with eyes closed. 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 hip flex 5/5 bilaterally Results & Data ([facility]) Vital Signs (Past 12 Hours) Vital Signs Temp Pulse Pulse Resp BP BP Pulse Ox 10/03/21 11:35 36.7 C 73 17 109/67 99 10/03/21 08:00 36.8 C 76 16 97 10/03/21 04:30 36.7 C 81 16 112/70 100 10/03/21 00:40 63 18 Laboratory Results Abnormal lab results 10/02/21 10/03/21 10/03/21 Range/Units 13:35 04:30 04:30 MPV 11.1 H 11.2 H (7.4-10.4) fL Hood # (Auto) 0.73 H (0.11-0.59) K/uL Glucose 111 H (70-99(Fasting)) mg/dl Triglycerides 225 H (0-150) mg/dl VLDL Cholesterol, Calc 45 H (0-30) mg/dl Cholesterol/HDL Ratio 5.1 H (0-5) Diagnostic Findings MRI brain-Acute infarct is in the right posterior MCA territory with associated edema. No hemorrhagic transformation is seen. CTA head/neck-No occlusion, hemodynamically significant stenosis, aneurysm, dissection, or arteriovenous malformation in the major intracranial arteries. No occlusion, hemodynamically significant stenosis, or dissection in the major cervical arteries. Please see MRI brain performed same day for detailed findings of right MCA territory infarct. MRI c spine-Multilevel degenerative changes without significant stenosis. CT head-Mild decreased attenuation within the distribution of the right middle cerebral cerebral artery posteriorly corresponding to the site of infarct seen on MRI. No evidence for interval hemorrhage or significant cerebral edema.
[2021-10-03] MEDS ORDERED: ASPIRIN 81 MG ECTAB PO ONE (16:30)
[2021-10-03] MEDS ORDERED: STROKE PATIENT DISCHARGE STA (16:57)
--- NOTE | 2021-10-03 19:05 | Discharge Summary ---
Date of Service October 03, 2021 Admission HPI Per Admitting Provider 40-year-old female PMH anxiety, other problems to below who presents the ED for evaluation of left hand numbness. Patient states that whenever she woke up this morning, her left hand was numb. Throughout the day, she also had some intermittent perioral and tongue numbness. She also woke up with a headache this morning that she describes as her " usual headache". She had some intermittent floaters over the past few days that she associates with her chronic ocular migraines. Patient denies difficulty speaking and understanding. No blurred or double vision. Denies facial droop or drooling. Reports difficulty using her left hand due to numbness however denies weakness. No other unilateral weakness, numbness, tingling. Denies lightheadedness, dizziness, diaphoresis, syncopal events. No seizure-like activity reported. Noted the patient has a positive for COVID-19 on 09/18. Illness seem to be self- limited. No chest pain or shortness of breath. Denies abdominal pain, nausea, vomiting, diarrhea. No urinary symptoms. In the ED, brain MRI showed Acute infarct is in the right posterior MCA territory. Patient is hemodynamically stable, labs unremarkable. Patient was given full dose aspirin. Admission Exam Per Admitting Provider onstitutional: WD/WN, vitals as above Eyes: PERRL, conjunctivae normal, anicteric sclerae ENMT: external ear and nose normal, oropharynx normal Respiratory: normal respiratory effort, lungs clear to auscultation Cardiovascular: Rate/Rhythm: regular rate and regular rhythm Vessels: normal peripheral pulses Extremities: no edema Gastrointestinal (Abdomen): normal bowel sounds, soft, nontender, no hepatosplenomegaly Musculoskeletal: no cyanosis or clubbing, extremities motor strength 5/5 Skin: no rashes, warm and dry Neurologic: PERRL, EOMI, accommodation nl, no face palsy, no dysarthria moves all extremities and awake; no focal motor deficits Motor/Sensory: no pronator drift Coordination: normal [id number] test Decrease sensation to left hand Psychiatric: A+Ox3, euthymic affect Principal Diagnosis Right MCA CVA Discharge Exam Constitutional + well hydrated; no acute distress Eyes PERRL, conjunctivae normal, anicteric sclerae ENMT external ear and nose normal, oropharynx normal Respiratory normal respiratory effort, lungs clear to auscultation Cardiovascular RRR, no murmur, no edema Gastrointestinal (Abdomen) normal bowel sounds, soft, nontender, no hepatosplenomegaly Musculoskeletal no cyanosis or clubbing, extremities motor strength 5/5 Neurologic PERRL, EOMI, accommodation nl, no face palsy, no dysarthria Reduced sensation on left hand No deficits in strength in all extremities Psychiatric A+Ox3, euthymic affect Discharge Data Allergies Allergy/AdvReac Type Severity Reaction Status Date / Time erythromycin base Allergy Nausea Verified 10/02/21 16:31 Consultations 10/02/21 19:27 ED Decision to Admit Stat 10/02/21 22:15 Consult Neurology Routine Ordered Studies 10/02/21 13:00 CT head/brain wo con Stat Extraaxial space: There is no evidence for subdural hematoma. There are no extra-axial fluid collections. Ventricles and cisterns: The ventricles are normal in size and configuration. There is no evidence for midline shift or mass effect. Parenchyma: There is no subarachnoid or intraparenchymal hemorrhage. There is no evidence for an acute infarct or cerebral edema. There is homogeneous attenuation of the brain parenchyma. There are no gross mass lesions. Osseous structures: There is no evidence for an acute fracture. The visualized paranasal sinuses are clear. The mastoid air cells are clear bilaterally. Soft tissues: There is no evidence for focal soft tissue swelling. IMPRESSION: 1. No acute intracerebral pathology 10/02/21 15:52 CT angio head w con Stat CT angio neck with con Stat Small thyroid nodules are seen which do not require follow-up by ACR criteria. CTA Neck: A 3 vessel aortic arch is shown. There is no significant atherosclerotic plaque in the aortic arch or the origins of the innominate, left common carotid, and left subclavian arteries. The common carotid, external carotid, cervical segments of the internal carotid arteries, and the cervical segments of the vertebral arteries are patent without hemodynamically significant stenosis. The right vertebral artery is dominant. CTA Head: The anterior and posterior cerebral circulations are patent. No hemodynamically significant stenosis, aneurysm, dissection, or arteriovenous malformation is shown. Incidentally noted, the right anterior communicating artery is diminutive. IMPRESSION: 1. No occlusion, hemodynamically significant stenosis, aneurysm, dissection, or arteriovenous malformation in the major intracranial arteries. 2. No occlusion, hemodynamically significant stenosis, or dissection in the major cervical arteries. 3. Please see MRI brain performed same day for detailed findings of right MCA territory infarct. MR brain wo/w con Stat Restricted diffusion is seen in the posterior MCA territory. Associated edema is seen without significant mass effect or midline shift. The ventricular system is normal in appearance. There is no evidence of acute intraparenchymal hemorrhage. No extra axial fluid collections are seen. The corpus callosum, pituitary gland, and cerebellar tonsils appear grossly unremarkable. Flow voids of the major intracranial arterial vessels are identified. The imaged portions of the paranasal sinuses, mastoid air cells, and orbits are unremarkable. IMPRESSION: Acute infarct is in the right posterior MCA territory with associated edema. No hemorrhagic transformation is seen. 10/02/21 16:01 MR cervical spine wo con Stat Exam is limited by patient motion. Cervical spine: Vertebral body height and alignment are maintained throughout the cervical spine. The atlantodental articulation appears maintained. No destructive bony lesion is seen. Intervertebral discs: Disks are normal in height and signal. Spinal cord: The cervical spinal cord is normal in morphology and signal intensity. C2-C3: Unremarkable. C3-C4: Small posterior disc bulge is seen without significant stenosis. C4-C5: Mild bilateral neural foraminal stenosis is seen. C5-C6: Small posterior disc bulge is seen without significant stenosis. C6-C7: Unremarkable. C7-T1: Unremarkable. Soft tissues: The paraspinous and prevertebral soft tissues are normal in appearance. Brain parenchyma: Partially imaged brain parenchyma at the skull base is within normal limits. IMPRESSION: Multilevel degenerative changes without significant stenosis. 10/03/21 08:00 CT head/brain wo con Routine Extraaxial space: There is no evidence for subdural hematoma. There are no extra-axial fluid collections. Ventricles and cisterns: The ventricles are normal in size and configuration. There is no evidence for midline shift or mass effect. Parenchyma: There is no subarachnoid or intraparenchymal hemorrhage. Compared to the MRI of the brain, there is mild decreased attenuation seen involving the distribution of the right middle cerebral artery posteriorly. No additional infarcts or evidence for cerebral edema is seen. There is homogeneous attenuation of the remaining brain parenchyma. There are no gross mass lesions. Osseous structures: There is no evidence for an acute fracture. The visualized paranasal sinuses are clear. The mastoid air cells are clear bilaterally. Soft tissues: There is no evidence for focal soft tissue swelling. IMPRESSION: 1. Mild decreased attenuation within the distribution of the right middle cerebral cerebral artery posteriorly corresponding to the site of infarct seen on MRI. 2. No evidence for interval hemorrhage or significant cerebral edema Hospital Course (1) Acute cerebrovascular accident (CVA): Patient presented from home with reports of left hand numbness that was present when she woke up this morning, also some intermittent perioral and tongue numbness throughout the day Initial CT head did not show any acute abnormalities Brain MRI shows acute right MCA infarct Other imaging studies as noted above Hypercoagulable work-up obtained in ED (risk factors - smoker, + family hx DVT; also recent COVID infection - ? clinical significance) Primary Doctor to follow up results of hypercoagulable work up which are still pending Did not meet criteria for TPA Was evaluated by Neurology and started on Aspirin and plavix Patient needs to be on aspirin and plavix for 21 days after which she will continue lifelong Aspirin Counselled extensively on need to quit smoking Echo with bubble study noted normal EF 55-60%, borderline concentric LVH, no atrial septal defect, no valvular heart disease Hemoglobin A1c was 5 Lipid panel showed triglyceride of 225, LDL of 83, total cholesterol of 159, HDL of 31. Patient was started on atorvastatin 40 mg at bedtime. (2) Anxiety: Continue citalopram Total Time Total Time Spent Total Time Spent (In Minutes): 35 Total Time Includes: Examination of the Patient, Discharge Planning, Medication Reconciliation and Communication With Other Providers Discharge Plan Discharge Items Patient Disposition: Home - Self-Care Reason For Visit: Left hand numbness Discharge Diagnosis: Cerebrovascular accident (stroke) Activity: Resume your previous activity Non-emergency contact: Primary Care Provider and Neurologist Call non-emergency contact if: you have any medication questions and your symptoms worsen Follow-up/Referrals: Allyson Lux DO [Primary Care Provider] - (Date & Time 10/09/2021 11:10 AM Provider Allyson Lux DO Department [facility] ) Soni Radford PA-C [Physician [facility]] - (Date & Time 11/01/2021 11:20 AM Provider Soni Radford PA-C Department Neurology [facility] ) Diet: Regular and Low Fat Addtl Attending Provider Instructions: Ms Bates You came to the hospital complaining of left hand and tongue numbness. You were evaluated and found to have a right sided stroke. Your lipid panel also showed elevated triglycerides. You were evaluated by neurology and started on aspirin and clopidogrel (plavix) You will be on this for next 21 days after which you continue aspirin for life. You were also started on atorvastatin. Please quit smoking as we discussed. Please ensure follow up with your Primary Doctor and Neurology. It was a pleasure taking care of you. Pending Studies at Discharge: Yes Studies:: Hypercoagulable studies Stand-Alone Forms: Medications to Prevent Stroke, My [facility], Smoking Cessation Medications and DC Order Prescriptions: New clopidogrel 75 mg Tablet 75 mg PO QAM 20 Days Qty: 20 RF: 0 aspirin 81 mg tablet,delayed release (DR/EC) 81 mg PO DAILY Qty: 30 RF: 0 atorvastatin 40 mg tablet 40 mg PO HS Qty: 30 RF: 0 Continued Mirena 20 mcg/24 hours (7 yrs) 52 mg Intrauterine Device 20 mcg INTRAUTERINE CONT RF: 0 citalopram 10 mg tablet 10 mg PO DAILY RF: 0 clonazepam 0.5 mg tablet 0.5 mg PO TID PRN (Reason: anxiety) RF: 0 citalopram 20 mg tablet 20 mg PO DAILY RF: 0 albuterol sulfate 90 mcg/actuation HFA aerosol inhaler 2 puff INHALATION Q4H PRN (Reason: shortness of breath) RF: 0 Discharge Orders: Discharge Order (Routine); Ordered 10/03/21 Ordered By: Negrita Andrew Admission Data Admit Date/Time: 10/02/21 20:23 Attending Provider: Negrita Andrew I. Admit Provider: Josh Felix Primary Care Provider: Allyson Lux Other Providers: Josh Felix ; Soni Cook Other Interventions: Discharge Summary Assessment (RN) Last Done: 10/03/21 17:37
--- NOTE | 2021-10-03 20:14 | Pharmacy Report ---
Pharmacist Stroke Counseling - Date of Service October 03, 2021 - Scope: Pharmacy has been consulted to provide medication discharge counseling for this patient admitted with ischemic stroke as per the Pharmacist Discharge Counseling for Stroke Patients Protocol. - Medications on Discharge: Home Medications Medication Instructions Recorded Confirmed albuterol sulfate 90 mcg/actuation 2 puff INHALATION Q4H PRN 10/02/21 10/02/21 aerosol inhaler citalopram 10 mg tablet 10 mg PO DAILY 10/02/21 10/02/21 citalopram 20 mg tablet 20 mg PO DAILY 10/02/21 10/02/21 clonazepam 0.5 mg tablet 0.5 mg PO TID PRN 10/02/21 10/02/21 levonorgestrel 20 mcg/24 hours (7 20 mcg INTRAUTERINE CONT 10/02/21 10/02/21 yrs) 52 mg intrauterine device (Mirena) New Rx's Medication Instructions Recorded aspirin 81 mg tablet,delayed 81 mg PO DAILY #30 tab 10/03/21 release atorvastatin 40 mg tablet 40 mg PO HS #30 tab 10/03/21 clopidogrel 75 mg tablet 75 mg PO QAM 20 Days #20 tab 10/03/21 - Action: The above medications, specifically ones for stroke treatment/prophylaxis, have been reviewed in detail with the patient and/or patient sales representative raw fibers(s) prior to discharge. This includes indication, common adverse reactions, drug interactions, and medication administration. Medication counseling has been employed using the teach-back method to ensure understanding. - Outcome: The patient and/or patient sales representative raw fibers(s) have demonstrated understanding of the medications. Additional comments: Instructed patient to take both ASA and plavix together x 21 days total (with today being day 1), then STOP plavix and continue ASA indefinitely Patient is familiar with ASA and has used in the past. Educated patient on s/s of bleeding and when to contact provider. Reviewed side effects of statins. Thank you for allowing pharmacy to be involved in the care of this patient. Please call [phone] with any additional questions
[2021-10-04] MEDS ORDERED: ASPIRIN 81 MG ECTAB PO SCH (09:00)
[2021-10-06 16:05] LABS: B2 Glycoprotein IgG <2.0 U/mL (<20.0); B2 Glycoprotein IgM <2.0 U/mL (<20.0)
== END 2021-10-03 18:00 | disposition home or self-care (01) | DRG 66 ==
LOC: ED 12:37 → 1E 20:23